=== PATIENT | male | born 1960 | race Caucasian/White ===

== ENCOUNTER 2020-09-28 11:06 | Observation (INO) ==
[~2020-09-28 11:06] MED LIST: Buffered Lidocaine 1% SYRIN 1 ml INTRADERM ONE; Lactated Ringers 1000 ml BAG 1,000 ML IV SCH
[2020-09-28] MEDS ORDERED: fentaNYL 100 mcg/2 ml 50 MCG/ML VIAL ONE (11:37)
[2020-09-28] MEDS ORDERED: Midazolam 2 mg/2 ml VIAL 1 mg/ml 2 ml VIAL (2 mg) ONE (11:37)
[2020-09-28] MEDS ORDERED: Dexmedetomidine 200 mcg/2 ml 2 ml VIAL (200 mcg) ONE (11:38)
[2020-09-28] MEDS ORDERED: Dexamethasone IV 4 MG/ML VIAL 1 ml VIAL ONE (11:38)
[2020-09-28] MEDS ORDERED: ROPIVACAINE 5 MG/ML 30 ML BTL (0.5%) ONE ×2 (11:38→13:35)
[2020-09-28] MEDS ORDERED: Clindamycin 900 MG/D5W BAG 900 MG/50 ML BAG IVPB ONE (11:38)
[2020-09-28] MEDS ORDERED: Lidocaine 2% PF 5 ML VIAL ONE (14:00)
[2020-09-28] MEDS ORDERED: Propofol 10 MG/ML 20 ML BTL ONE ×3 (14:00→15:38)
[2020-09-28] MEDS ORDERED: fentaNYL 100 mcg/2 ml 50 MCG/ML VIAL IV PRN (14:42)
[2020-09-28] MEDS ORDERED: Ondansetron 4 mg VIAL 2 MG/ML 2 ml VIAL IV PRN ×2 (14:42→16:32)
[2020-09-28] MEDS ORDERED: Naloxone 0.4 mg VIAL 0.4 mg/ml 1 ml VIAL IV PRN (14:42)
[2020-09-28] MEDS ORDERED: diPHENhydraMINE IV 50 MG/ML 1 ml VIAL (BENADRYL) IV PRN (16:32)
[2020-09-28] MEDS ORDERED: Morphine 2 MG/ML SYRINGE IV PRN (16:32)
[2020-09-28] MEDS ORDERED: Lactulose 30 ml UDC PO PRN (16:32)
[2020-09-28] MEDS ORDERED: diPHENhydraMINE 25 mg TAB PO PRN (16:32)
[2020-09-28] MEDS ORDERED: Magnesium Hydroxide LIQ 30 ML UDC PO PRN (16:32)
[2020-09-28] MEDS ORDERED: Ondansetron ODT 4 mg TAB 4 MG TAB PO PRN (16:32)
[2020-09-28] MEDS ORDERED: oxyCODONE/Acetamin 5/325 mg TAB PO PRN (16:32)
[2020-09-28] MEDS ORDERED: Lactated Ringers 1000 ml BAG 1,000 ML IV SCH ×2 (17:00→20:46)
[2020-09-28] MEDS: Magnesium Hydroxide LIQ 30 ML UDC PO SCH (20:37)
[2020-09-28] MEDS: Clindamycin 600 MG/D5W BAG 600 MG/50 ML BAG IV SCH (23:06)
[2020-09-29] MEDS: oxyCODONE/Acetamin 5/325 mg TAB PO PRN ×3 (00:23→10:14)
[2020-09-29] MEDS: Clindamycin 600 MG/D5W BAG 600 MG/50 ML BAG IV SCH ×2 (05:39→13:43)
[2020-09-29 06:27] LABS: Hematocrit 35 % (42-52); Hemoglobin 11.3 g/dL (14.0-18.0); Mean Platelet Volume 8.9 fL (7.4-10.4); Platelet Count 136 10^3/uL (150-450)
[2020-09-29 06:43] LABS: BUN/Creatinine Ratio 18.5 (8-20); Calcium 8.9 mg/dL (8.6-10.3); EGFR African American 116.8 (>60); EGFR Non-African American 96.6 (>60); Potassium 4.3 mmol/L (3.5-5.0)
[2020-09-29] MEDS ORDERED: Vitamin THERAPEUTIC TAB PO SCH (09:00)
[2020-09-29] MEDS: Magnesium Hydroxide LIQ 30 ML UDC PO SCH (10:00)
[2020-09-29 11:43] VITALS: BP 124/67
== END 2020-09-29 14:45 | disposition home or self-care (01) ==
LOC: AA 11:06 → INTOOBSV 11:06 → SSU 17:16
PROVIDERS: ADMIT Orthopaedic Surgery Adult Reconstructive Orthopaedic Surgery; ATTEND Orthopaedic Surgery Adult Reconstructive Orthopaedic Surgery